=== PATIENT | male | born 1990 | race African-American/Black ===

== ENCOUNTER 2019-04-24 09:17 | Outpatient (CLI) | payer BC, SELFPAY ==
--- NOTE | 2019-04-24 11:00 | NEURO_ITS ---
Patient Number: [id number] Impression: # Complains of right hand pain. # No Carpal Tunnel Syndrome. 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 # Normal needle/EMG exam. Nerve Conduction Studies Anti Sensory Summary Table Stim Site NR Peak (ms) P-T Amp (?V) Site1 Site2 Delta-P (ms) Dist (cm) Shahbaz (m/s) Right Median Anti Sensory (2-3nd Digit) Wrist 2.7 79.8 Wrist 2-3nd Digit 2.7 14.0 52 Wrist 2.7 56.4 Wrist 2-3nd Digit 2.7 14.0 52 Right Radial Anti Sensory (Base 1st Digit) Wrist 2.5 5.8 Wrist Base 1st Digit 2.5 0.0 Right Ulnar Anti Sensory (5th Digit) Wrist 2.7 36.3 Wrist 5th Digit 2.7 14.0 52 Motor Summary Table Stim Site NR Onset (ms) O-P Amp (mV) Site1 Site2 Delta-0 (ms) Dist (cm) Shahbaz (m/s) Right Median Motor (Abd Poll Brev) Wrist 3.4 3.1 Elbow Wrist 4.6 30.0 65 Elbow 8.0 4.7 Right Ulnar Motor (Abd Dig Minimi) Wrist 2.9 6.0 A Elbow Wrist 5.8 31.0 53 A Elbow 8.7 4.5 B Elbow Wrist 3.8 24.0 63 B Elbow 6.7 6.1 F Wave Studies NR F-Lat (ms) L-R F-Lat (ms) Right Median (Mrkrs) (Abd Poll Brev) 29.77 Right Ulnar (Mrkrs) (Abd Dig Min) 27.84 EMG Side Muscle Nerve Root Ins Act Fibs Amp Dur Recrt Comment Right 1stDorInt Ulnar C8-T1 Nml Nml Nml Nml Nml Right Ext Indicis Radial (Post Int) C7-8 Nml Nml Nml Nml Nml Right Ext Digitorum Radial (Post Int) C7-8 Nml Nml Nml Nml Nml Right BrachioRad Radial C5-6 Nml Nml Nml Nml Nml Right PronatorTeres Median C6-7 Nml Nml Nml Nml Nml Right Abd Poll Brev Median C8-T1 Nml Nml Nml Nml Nml Right ABD Dig Min Ulnar C8-T1 Nml Nml Nml Nml Nml MTDD
== END 2019-04-24 09:18 | disposition home or self-care (01) ==
PROVIDERS: PCP Family Medicine; Visit Provider Family Medicine
DX: G56.21 Lesion of ulnar nerve, right upper limb (principal)
CPT/HCPCS: 95886; 95909

== ENCOUNTER 2019-05-06 12:40 | Outpatient (CLI) | payer BC, SELFPAY ==
--- NOTE | 2019-05-06 12:43 | ECG_ITS ---
Measurements Intervals [place] Rate: 77 P: 65 SC: 170 QRS: 44 QRSD: 89 T: 23 QT: 346 QTc: 394 Interpretive Statements SINUS RHYTHM ST ELEVATION IN DIFFUSE LEADS- PROBABLY EARLY REPOLARIZATION BASELINE ARTIFACT- I, II, III, AVR, AVL, AVF BORDERLINE ECG Electronically Signed On 05-06-2019 13:02:07 CDT by Tera Lozada D.O.
== END 2019-05-06 12:41 | disposition home or self-care (01) ==
LOC: ANHSURGERY 12:43
PROVIDERS: PCP Family Medicine; Visit Provider Surgery
DX: Z01.810 Encounter for preprocedural cardiovascular examination (principal); I48.91 Unspecified atrial fibrillation; K40.90 Unilateral inguinal hernia, without obstruction or gangrene, not specified as recurrent
CPT/HCPCS: 93005

== ENCOUNTER 2019-07-07 05:08 | Outpatient (CLI) | payer BC, SELFPAY ==
[2019-07-07 15:31] LABS: SARS-CoV-2 RNA PCR Negative
== END 2019-07-07 05:09 | disposition home or self-care (01) ==
LOC: ANHCOVIDDT 05:09
PROVIDERS: PCP Family Medicine; Visit Provider Surgery
DX: Z01.818 Encounter for other preprocedural examination (principal); Z11.59 Encounter for screening for other viral diseases
CPT/HCPCS: 87635; C9803; U0003

== ENCOUNTER 2019-07-09 01:01 | Day surgery (SDC) | payer BC, SELFPAY ==
[2019-05-05 11:31] VITALS: BMI 34.8
[2019-07-04 14:50] VITALS: BMI 34.8
[2019-07-09 06:44] VITALS: BP 130/81; PULSE 83; RESP 18; TEMP 37.1; O2SAT 98
[2019-07-09] MEDS: LACTATED RINGERS 1,000 ML 30 ML IV CONT (06:45)
--- NOTE | 2019-07-09 07:00 | WPDANESEPPF ---
Anes - Initial Pre Proc Eval Procedure: Operation Date: 07/09/19 07:30 Proposed Procedures p Right Inguinal Hernia Repair With Mesh - Chapito Bolanos MD Date/Time: 07/09/19 07:00 Surgeon: Chapito Bolanos MD Pre Op Diagnosis: Right Inguinal Hernia Patient Data Age: 29 Gender: M Height: 6 ft Weight: 119 kg Last Vital Signs Temp 37.1 C 07/09/19 06:44 Pulse 83 07/09/19 06:44 Resp 18 07/09/19 06:44 BP 130/81 07/09/19 06:44 Pulse Ox 98 07/09/19 06:44 Allergies Allergy/AdvReac Type Severity Reaction Status Date / Time No Known Allergies Allergy Verified 07/09/19 06:37 Home Medications Medication Instructions Recorded Confirmed Type No Home Medications 04/24/19 07/09/19 History Patient hx anesthesia problems: none Family hx anesthesia problems: none PMFSH Past Medical History Medical History A-fib Bronchitis Surgical History Surgical History Inguinal hernia repair in 2009 Family History Family History Father Family history of allergic disorder Other Cerebrovascular accident Family history of malignant neoplasm of breast Social History Social History Smoking status: Current every day smoker Alcohol intake: never Anes - Eval Final PreProcedure Day of Procedure 07/09/19 07:00 Patient weight: obese Heart: regular rate and rhythm Lungs: decreased breath sounds Airway: Mallampati scale class II Neurological: alert and oriented Last oral intake: >/= 8 hours ASA classification: III Emergent: no Anesthetic plan: proceed Anesthesia type and monitoring: general GIVS and standard monitoring Informed Consent: The patient's anesthetic plan and its attendant risks and benefits were discussed with the patient/family/POA. Questions were solicited and answers provided to the satisfaction of the patient/family/POA.
--- NOTE | 2019-07-09 07:16 | PM.HPGS ---
History of Present Illness History of Present Illness Consent: Risks, benefits, and alternatives of repair of a right inguinal hernia with mesh have been discussed and questions answered. Patient agrees to proceed with procedure. Chief complaint: Right Inguinal Hernia Narrative: Nolan Todd is a 29 year old male who returned to the office for an re-evaluation of a right inguinal hernia in early April. Since patient was last seen he reports that he still has shooting pain that comes and goes in the right groin. Patient report that the pain is not that bad, he reports that he did lose his job because of the hernia because he was unable to perform the job he was fired for. He report no signs of recurrent hernia on the left side after the repair completed in 2009. He reports he would like to move forward with surgry at this time to repair the right side. He reports the hernia now does bulge out more than it did when he was seen in 05/2018. Patient reports that he does still smoke about a 1/2 pack a day. Review of Systems Constitutional: Constitutional: Reports no additional constitutional complaints, Reports fatigue and Denies malaise Eyes: Eyes: Denies change in vision and Denies loss of vision ENT: Reports Normal hearing present, Denies change in voice, Denies dizziness, Denies hoarseness and Denies sore throat Cardiovascular: Cardiovascular: Denies chest pain, Denies leg edema and Denies dyspnea Respiratory: Respiratory: Denies cough, Denies dyspnea and Denies wheezing Gastrointestinal: Gastrointestinal: Reports as per HPI, Reports no additional gastrointestinal complaints, Denies hematochezia, Denies change in bowel habits and Denies heartburn Genitourinary: Genitourinary: Denies urinary frequency and Denies urinary incontinence Neurologic: Reports Normal hearing present, Denies confusion, Denies dizziness, Denies loss of vision, Denies memory loss and Denies seizure-like activity Psychiatric: Psychiatric: Denies confusion, Denies depression and Denies memory loss Endocrine: Endocrine: Denies cold intolerance and Reports fatigue Hematologic/Lymphatic: Hematologic/Lymphatic: Denies easy bleeding and Denies easy bruising Allergic/Immunologic: Allergic/Immunologic: Denies wheezing PMFSH Past Medical History Medical History A-fib Bronchitis Surgical History Surgical History Inguinal hernia repair in 2009 Family History Family History Father Family history of allergic disorder Other Cerebrovascular accident Family history of malignant neoplasm of breast Social History Social History Smoking status: Current every day smoker Alcohol intake: never Meds Home Medications and Allergies Home Medications Medication Instructions Recorded Confirmed Type No Home Medications 04/24/19 07/09/19 History Allergies Allergy/AdvReac Type Severity Reaction Status Date / Time No Known Allergies Allergy Verified 07/09/19 06:37 Vital Signs Vital Signs - 24 hr 07/09/19 06:44 Temperature 37.1 C Pulse Rate 83 Respiratory Rate 18 Blood Pressure 130/81 Pulse Oximetry 98 Exam Const: General: cooperative, healthy appearing, no acute distress, well developed and alert; No confusion Nutritional Appearance: well nourished Orientation/consciousness: patient oriented x3 and No confusion Limitations: no limitations HENMT: Head: normal to inspection, normocephalic and atraumatic Ears: hearing grossly normal bilaterally General nose exam: Normal external nose present Face and sinus: no edema Mouth: Yes Normal oral and palatal mucosa present and Yes lip normal Throat: posterior oropharynx normal Eyes: General: appearance normal, both eyes and all related structures Sclera: s
[2019-07-09] MEDS: ceFAZolin 2 GM/D5W 50 ML 2 GM/50 ML BAG IVPB (07:35)
--- NOTE | 2019-07-09 10:20 | PM.PROC ---
Procedure Note - Detailed Date of procedure: 07/09/19 Pre-op diagnosis: Right Inguinal Hernia Right Inguinal hernia Post-op diagnosis: other (Indirect right inguinal hernia) Procedure performed: Open inguinal hernia repair with mesh Description of procedure: The patient was placed in the supine position on the operating room table. After induction of adequate GIVS anesthesia by [facility] Anesthesia staff, we carefully prepped the entire abdomen and scrotum with chlorhexidine. One sterile towel was placed underneath the scrotum. Four towels were placed around the right lower quadrant. Following this, a time-out was performed with the surgical team and the patient's surgical procedure and site was confirmed. We then carefully outlined a curvilinear incision in the right groin area and a curvilinear incision was made after introducing a mixture of local anesthetic, using 0.5% Marcaine with epinephrine and 1% Xylocaine plain as both an ilioinguinal nerve block and at the incision site with a 25 gauge needle. Following this, I carefully made the incision, and carried it down through the subcutaneous tissue. Bruce's fascia was incised and then we identified the external oblique aponeurosis and the external ring. Following this, the same mixture of local anesthetic was infiltrated underneath the external oblique aponeurosis and this was split in the direction of it's fibers with a #15 blade initially and then using metzenbaum scissors. I then opened the external oblique through the external ring and incised this somewhat posteriorly and superiorly exposing the ilioinguinal nerve. This nerve was carefully preserved laterally and then I carefully and meticulously dissected out the cord structures at the level of the pubic tubercle. I then surrounded these structures at the level of pubic tubercle and placed a [place] drain around them. I then carefully dissected the hernia sac up and off of the cord tissues, and brought it up and out of the incision. We carefully dissected the layers and cremasteric tissues off the hernia sac and then eventually opened the hernia sac. Holding this up with 4 hemostats, I carefully dissected it off the cord structures, being careful to avoid injury to the Pampiniform plexus veins, the spermatic artery and the vas. It was found that some intraperitoneal fat was K significantly adhered to the inferior medial portion of the proximal indirect inguinal hernia sac. I carefully dissected between this such that we could reduce the fat surrounding the cecum and reduce it back into the abdomen. At the level of the internal ring I then suture ligated the neck of the hernia sac. Once the hernia sac was carefully dissected back to the level of the internal ring, a suture ligation pursestring suture of 2-0 silk was used to circumvent and close the base or neck of the indirect hernia sac. Following this, a 2 - 0 silk tie was placed just below this, tied tight, and then distally the hernia sac was amputated with Bovie cautery. It was then passed off the field for pathologic evaluation. There is also found to be about a 10 cm long lipoma of the cord which was dissected back almost to the internal ring and amputated after clamping across with a hemostat and then suture ligature with the 3 0 Vicryl. The lipoma of the cord was sent with the hernia sac tissue for pathologic evaluation. Following this, we took care to recreate an appropriate inguinal canal. This was done by carefully dissecting from the internal ring down to the pubic bone, dissecting away any cremasteric tissue. Because they were in the way the 2 cream S [place] vessels about equal distant from the pubic tubercle to the internal ring were divided at this point and suture ligated with 3 0 Vicryl. The other side toward the cord structures was simply cauterized. A running suture of 0 Prolene was placed in the pubic tubercle and run up to the internal ring, approx
[2019-07-09 10:26] VITALS: BP 168/108; PULSE 73; RESP 18; TEMP 36.1; O2SAT 100
[2019-07-09 10:56] VITALS: BP 148/99; PULSE 71; RESP 18; O2SAT 99
[2019-07-09 11:26] VITALS: BP 145/87; PULSE 76; RESP 18
[2019-07-09 11:56] VITALS: BP 136/96; PULSE 77; RESP 18
== END 2019-07-09 12:09 | disposition home or self-care (01) ==
PROVIDERS: PCP Family Medicine; Visit Provider Surgery
PROC: (CPT 49505; principal; 2019-07-09 07:30)
DX: K40.90 Unilateral inguinal hernia, without obstruction or gangrene, not specified as recurrent (principal); F17.200 Nicotine dependence, unspecified, uncomplicated; E66.9 Obesity, unspecified; Z68.35 Body mass index [BMI] 35.0-35.9, adult
CPT/HCPCS: 49505; 88300; 88302; 88304; A9270; C1781; J0131; J0690; J2250; J2405; J2704; J3010; J7120

== ENCOUNTER 2019-10-07 11:59 | Emergency (ER) | payer OTHER, BC, SELFPAY ==
--- NOTE | ~2019-10-07 | XR_ITS ---
XR ankle RT min 3V DATE: 10/07/2019 12:41 INDICATION: Injury. Fall. Right ankle and foot pain. TECHNIQUE: 4 views COMPARISON: None FINDINGS: Mild plantar calcaneal enthesopathy. No fracture or dislocation of the ankle or disruption of the ankle mortise. No periosteal reaction or bone destruction. IMPRESSION: Mild plantar calcaneal enthesopathy Reviewed, dictated and finalized at location A.
--- NOTE | ~2019-10-07 | XR_ITS ---
XR foot RT min 3V DATE: 10/07/2019 12:41 INDICATION: Fell into hole. Ankle and foot pain. TECHNIQUE: 4 views COMPARISON: None FINDINGS: Mild plantar calcaneal enthesopathy. No fracture or dislocation, periosteal reaction or bone destruction. Mild osteoarthritis of the first metatarsophalangeal joint. IMPRESSION: No fracture or dislocation Mild osteoarthritis at first metatarsophalangeal joint Mild plantar calcaneal enthesopathy Reviewed, dictated and finalized at location A.
[2019-10-07 12:06] VITALS: BP 131/79; PULSE 89; RESP 16; TEMP 36.9; O2SAT 99
[2019-10-07 12:19] VITALS: BP 131/79; PULSE 89; RESP 16; TEMP 36.9; O2SAT 99
--- NOTE | 2019-10-07 13:09 | ED.LOWEXIN ---
HPI - Extremity Injury (Lower) General Chief Complaint: Extremity Injury, Lower <Eleonora Lucas PA-C - Last Filed: 10/07/19 13:23> Stated Complaint: fall 34 ft into a hole/ankle pain <Eleonora Lucas PA-C - Last Filed: 10/07/19 13:23> Time Seen by Provider: 10/07/19 12:35 <SEAMUS Regan Last Filed: 10/07/19 13:23> Source: patient <SEAMUS Regan Last Filed: 10/07/19 13:23> Mode of arrival: wheelchair <SEAMUS Regan Last Filed: 10/07/19 13:23> Limitations: no limitations <SEAMUS Regan Last Filed: 10/07/19 13:23> History of Present Illness HPI Narrative: This is a 29-year-old male that presents emergency department for right ankle injury yesterday. Reports he stepped into a pothole and twisted the ankle. Reports pain mostly on the lateral aspect of the ankle. Pain is worse with movement and relieved with rest. Reports decreased range of motion due to pain. Denies other injuries or numbness. <SEAMUS Regan Last Filed: 10/07/19 13:23> Related Data Home Medications: Home Medications Medication Instructions Recorded Confirmed No Home Medications 08/28/19 <SEAMUS Regan Last Filed: 10/07/19 13:23> Allergies/Adverse Reactions: Allergies Allergy/AdvReac Type Severity Reaction Status Date / Time No Known Allergies Allergy Verified 08/28/19 08:58 <SEAMUS Regan Last Filed: 10/07/19 13:23> Review of Systems Review of Systems: Narrative: CONSTITUTIONAL: Denies fever MUSCULOSKELETAL: Reports joint pain, and myalgia. NEUROLOGIC: Denies numbness <SEAMUS Regan Last Filed: 10/07/19 13:23> All systems reviewed & are unremarkable except as noted in HPI and below <SEAMUS Regan Last Filed: 10/07/19 13:23> PMFSH Social History Social History: Social History Smoking status: Current every day smoker Alcohol intake: never <Eleonora Lucas PA-C - Last Filed: 10/07/19 13:23> Exam Narrative: Exam Narrative: GENERAL: Well-appearing, well-nourished, and in no acute distress. HEAD: Normocephalic, atraumatic. EYES: EOMI. EXTREMITIES: Normal range of motion. No edema or obvious deformity. Normal sensation. Normal DP pulses SKIN: Warm, dry, no rash. NEURO: No focal deficits. Alert and oriented x3. PSYCH: Normal mood and affect <Eleonora Lucas PA-C - Last Filed: 10/07/19 13:23> Course Vital Signs Vital signs: Vital Signs Temperature 36.9 C 10/07/19 12:06 Pulse Rate 89 10/07/19 12:06 Respiratory Rate 16 10/07/19 12:06 Blood Pressure 131/79 10/07/19 12:06 Pulse Oximetry 99 10/07/19 12:06 Temperature 36.3 C L 10/07/19 13:36 Pulse Rate 75 10/07/19 13:36 Respiratory Rate 20 10/07/19 13:36 Blood Pressure 131/88 10/07/19 13:36 Pulse Oximetry 100 10/07/19 13:36 <Eleonora Lucas PA-C - Last Filed: 10/07/19 13:23> Vital Signs Temperature 36.9 C 10/07/19 12:06 Pulse Rate 89 10/07/19 12:06 Respiratory Rate 16 10/07/19 12:06 Blood Pressure 131/79 10/07/19 12:06 Pulse Oximetry 99 10/07/19 12:06 Temperature 36.3 C L 10/07/19 13:36 Pulse Rate 75 10/07/19 13:36 Respiratory Rate 20 10/07/19 13:36 Blood Pressure 131/88 10/07/19 13:36 Pulse Oximetry 100 10/07/19 13:36 <Bailee Garcia MD - Last Filed: 10/07/19 13:38> MDM - Extremity Injury (Lower) MDM Narrative Medical decision making narrative: Patient presents to the emergency department for right ankle injury yesterday. Right ankle and foot x-rays are without acute osseous abnormalities. Patient was instructed on care of ankle sprain. He is to follow-up with primary care doctor. He was given warnings to return to the ER <Eleonora Lucas PA-C - Last Filed: 10/07/19 13:23> Imaging Data Radiologist's impression: ITS Impressions Ankle X-Ray 10/07/19 12:4
[2019-10-07 13:36] VITALS: BP 131/88; PULSE 75; RESP 20; TEMP 36.3; O2SAT 100
== END 2019-10-07 13:37 | disposition home or self-care (01) ==
PROVIDERS: Emergency Provider Emergency Medicine; PCP Family Medicine
DX: S93.401A Sprain of unspecified ligament of right ankle, initial encounter (principal); S96.911A Strain of unspecified muscle and tendon at ankle and foot level, right foot, initial encounter; X50.9XXA Other and unspecified overexertion or strenuous movements or postures, initial encounter; F17.200 Nicotine dependence, unspecified, uncomplicated; M19.071 Primary osteoarthritis, right ankle and foot; M77.31 Calcaneal spur, right foot
CPT/HCPCS: 73610; 73630; 99283; A9270